=== PATIENT | male | born 1960 | race Hispanic/Latino ===

== ENCOUNTER 2022-06-11 16:25 | Emergency (ER) | payer OTHER, MEDICAID ==
[~2022-06-11] VITALS: Ht 165.1 cm; Wt 74.8 kg
[2022-06-11] MEDS: LACTATED RINGERS 1000ML 1,000 ML IV ONE (16:30)
[2022-06-11] MEDS: ACETAMINOPHEN 325 MG TAB PO ONE (16:30)
[2022-06-11] MEDS: ONDANSETRON 4MG INJ IVP ONE (16:30)
[2022-06-11 17:03] LABS: BASOPHILS % (AUTO) 0.4 % (0.0-5.0); EOSINOPHILS % (AUTO) 0.2 % (0.0-8.0); HEMATOCRIT 48.7 % (42-54); LYMPHOCYTES % (AUTO) 6.4 % (21.0-51.0); MEAN CORPUSCULAR HEMOGLOBIN 29.2 pg (27.0-33.0); MEAN CORPUSCULAR HGB CONC 33.9 g/dL (32.0-36.0); MONOCYTES % (AUTO) 10.3 % (3.0-13.0); NEUTROPHILS % (AUTO) 81.8 % (40.0-77.0); PLATELET COUNT (AUTO) 153 K/uL (130-400); RED BLOOD CELL COUNT(AUTO) 5.66 MIL/uL (4.50-6.20); RED CELL DISTRIBUTION WIDTH 14.5 % (11.0-15.5); WHITE BLOOD COUNT (AUTO) 9.1 K/uL (4.8-10.8)
[2022-06-11 17:17] LABS: CREATININE 1.1 mg/dL (0.5-1.5); POTASSIUM 3.3 mmol/L (3.5-5.1)
[2022-06-11 17:22] LABS: ALBUMIN 3.3 g/dL (3.5-5.0); TOTAL PROTEIN, SERUM 7.3 g/dL (6.0-8.3)
[2022-06-11 17:27] LABS: APPEARANCE,URINE CLEAR (CLEAR); BILIRUBIN,URINE NEGATIVE (NEGATIVE); COLOR,URINE YELLOW (YELLOW); GLUCOSE, URINE (UA) NEGATIVE (NEGATIVE); KETONES,URINE NEGATIVE (NEGATIVE); LEUKOCYTE ESTERASE ,URINE NEGATIVE (NEGATIVE); NITRATE,URINE NEGATIVE (NEGATIVE); OCCULT BLOOD,URINE NEGATIVE (NEGATIVE); PH,URINE 5.5 (5.0-8.0); PROTEIN,URINE NEGATIVE (NEGATIVE); UROBILINOGEN,URINE 0.2 mg/dL (0.2-1.0)
[2022-06-11] MEDS ORDERED: CIPR-278 PO (18:42)
[2022-06-11] MEDS ORDERED: ONDA4TAB10 PO (18:42)
[2022-06-11 18:48] VITALS: BP 148/73
[2022-06-11] MEDS: LEVOFLOXACIN 500 MG TABLET PO SCH (18:48)
== END 2022-06-11 18:54 | disposition home or self-care (01) ==
LOC: EDH 16:25
DX: K52.9 Noninfective gastroenteritis and colitis, unspecified (principal); I12.0 Hypertensive chronic kidney disease with stage 5 chronic kidney disease or end stage renal disease; N18.6 End stage renal disease; Z94.0 Kidney transplant status
CPT/HCPCS: 99284; 74176; 96374; 96361; 80053; 83690; 85025; 87040 ×2; 83605; 81003; 36415; J7120; J2405

== ENCOUNTER 2022-09-22 10:55 | Emergency (ER) | payer MEDICAID, OTHER ==
[~2022-09-22] VITALS: Ht 165.1 cm; Wt 75.3 kg
[~2022-09-22 10:55] MED LIST: CIPR-278 PO; ONDA4TAB10 PO
[2022-09-22] MEDS ORDERED: NA BORATE/BORIC AC/H2O/NACL 120 ML OPHTH IRRIG SOLN OP SCH (11:30)
[2022-09-22] MEDS ORDERED: TETRACAINE HCL 0.5% 15 ML OPHTH SOLN OP SCH (11:30)
[2022-09-22] MEDS ORDERED: TETRACAINE HCL 0.5% 4 ML OPHTH SOLN ONE (11:51)
[2022-09-22] MEDS ORDERED: FLUORESCEIN SODIUM 1 STRIP STRIP ONE (11:57)
[2022-09-22 14:41] VITALS: BP 132/78
== END 2022-09-22 14:43 | disposition home or self-care (01) ==
LOC: EDH 10:55
DX: H54.62 Unqualified visual loss, left eye, normal vision right eye (principal); Z98.890 Other specified postprocedural states
CPT/HCPCS: 70480

== ENCOUNTER 2022-11-23 11:50 | Emergency (ER) | payer OTHER ==
[~2022-11-23] VITALS: Ht 165.1 cm; Wt 71.7 kg
[2022-11-23 14:26] LABS: BASOPHILS % (AUTO) 0.7 % (0.0-5.0); EOSINOPHILS % (AUTO) 0.9 % (0.0-8.0); LYMPHOCYTES % (AUTO) 18.9 % (21.0-51.0); MEAN CORPUSCULAR HEMOGLOBIN 28.6 pg (27.0-33.0); MEAN CORPUSCULAR HGB CONC 32.7 g/dL (32.0-36.0); MEAN CORPUSCULAR VOLUME 87.6 fL (79-99); MONOCYTES % (AUTO) 12.8 % (3.0-13.0); PLATELET COUNT (AUTO) 190 K/uL (130-400); RED BLOOD CELL COUNT(AUTO) 6.39 MIL/uL (4.50-6.20); RED CELL DISTRIBUTION WIDTH 15.2 % (11.0-15.5); WHITE BLOOD COUNT (AUTO) 8.8 K/uL (4.8-10.8)
[2022-11-23 14:34] LABS: POTASSIUM 3.7 mmol/L (3.5-5.1)
[2022-11-23 14:38] LABS: ALBUMIN 4.1 g/dL (3.5-5.0); TOTAL PROTEIN, SERUM 8.4 g/dL (6.0-8.3)
[2022-11-23] MEDS ORDERED: HYDR-3420 PO (14:45)
[2022-11-23] MEDS ORDERED: CLON0.1T PO (14:45)
[2022-11-23 15:01] VITALS: BP 164/84
== END 2022-11-23 15:05 | disposition home or self-care (01) ==
LOC: EDH 11:50
DX: I10 Essential (primary) hypertension (principal); Z76.0 Encounter for issue of repeat prescription; Z79.899 Other long term (current) drug therapy
CPT/HCPCS: 36415; 80053; 85025; 99281

== ENCOUNTER 2022-12-02 02:05 | Emergency (ER) | payer OTHER ==
[~2022-12-02] VITALS: Ht 165.1 cm; Wt 74.8 kg
[~2022-12-02 02:05] MED LIST changes: +CLON0.1T PO; +HYDR-3420 PO
[2022-12-02 02:25] LABS: BASOPHILS % (AUTO) 0.7 % (0.0-5.0); EOSINOPHILS % (AUTO) 0.6 % (0.0-8.0); HEMATOCRIT 53.9 % (42-54); LYMPHOCYTES % (AUTO) 17.6 % (21.0-51.0); MEAN CORPUSCULAR HEMOGLOBIN 28.3 pg (27.0-33.0); MEAN CORPUSCULAR HGB CONC 32.7 g/dL (32.0-36.0); MEAN CORPUSCULAR VOLUME 86.8 fL (79-99); MONOCYTES % (AUTO) 8.2 % (3.0-13.0); NEUTROPHILS % (AUTO) 71.1 % (40.0-77.0); PLATELET COUNT (AUTO) 209 K/uL (130-400); RED BLOOD CELL COUNT(AUTO) 6.21 MIL/uL (4.50-6.20); RED CELL DISTRIBUTION WIDTH 14.1 % (11.0-15.5); WHITE BLOOD COUNT (AUTO) 11.1 K/uL (4.8-10.8)
[2022-12-02] MEDS ORDERED: CLONIDINE HCL 0.1 MG TABLET PO ONE (02:30)
[2022-12-02 02:44] LABS: CREATININE 0.7 mg/dL (0.5-1.5)
[2022-12-02 02:49] LABS: ALBUMIN 3.8 g/dL (3.5-5.0); TOTAL PROTEIN, SERUM 7.7 g/dL (6.0-8.3)
[2022-12-02] MEDS ORDERED: ACETAMINOPHEN 500 MG TABLET PO ONE (03:30)
[2022-12-02 04:17] LABS: AMPHET/METH SCREEN,URINE NEGATIVE (NEGATIVE); BARBITURATE SCREEN, URINE NEGATIVE (NEGATIVE); BENZODIAZEPINES SCREEN,URINE NEGATIVE (NEGATIVE); CANNABINOID SCREEN,URINE NEGATIVE (NEGATIVE); COCAINE SCREEN,URINE NEGATIVE (NEGATIVE); OPIATE SCREEN,URINE NEGATIVE (NEGATIVE); PHENCYCLIDINE SCREEN,URINE NEGATIVE (NEGATIVE)
[2022-12-02] MEDS ORDERED: CLON0.1T PO (05:58)
[2022-12-02] MEDS ORDERED: HYDR-3420 PO (05:58)
[2022-12-02 07:25] VITALS: BP 159/96
== END 2022-12-02 07:25 | disposition home or self-care (01) ==
LOC: EDH 02:05
DX: I10 Essential (primary) hypertension (principal); F41.9 Anxiety disorder, unspecified; Z94.0 Kidney transplant status; Z76.0 Encounter for issue of repeat prescription; Z79.899 Other long term (current) drug therapy
CPT/HCPCS: 36415; 70450; 71045; 80053; 80305; 84484; 85025; 93005

== ENCOUNTER 2022-12-26 10:06 | Emergency (ER) | payer OTHER ==
[~2022-12-26] VITALS: Ht 165.1 cm; Wt 65.8 kg
[2022-12-26 10:36] LABS: BASOPHILS % (AUTO) 0.5 % (0.0-5.0); EOSINOPHILS % (AUTO) 0.8 % (0.0-8.0); HEMATOCRIT 48.7 % (42-54); LYMPHOCYTES % (AUTO) 16.5 % (21.0-51.0); MEAN CORPUSCULAR HEMOGLOBIN 28.5 pg (27.0-33.0); MEAN CORPUSCULAR HGB CONC 32.6 g/dL (32.0-36.0); MEAN CORPUSCULAR VOLUME 87.4 fL (79-99); MONOCYTES % (AUTO) 9.2 % (3.0-13.0); PLATELET COUNT (AUTO) 144 K/uL (130-400); RED BLOOD CELL COUNT(AUTO) 5.57 MIL/uL (4.50-6.20); RED CELL DISTRIBUTION WIDTH 14.6 % (11.0-15.5); WHITE BLOOD COUNT (AUTO) 10.4 K/uL (4.8-10.8)
[2022-12-26 10:46] LABS: CREATININE 1.2 mg/dL (0.5-1.5); POTASSIUM 3.8 mmol/L (3.5-5.1)
[2022-12-26 10:50] LABS: ALBUMIN 3.3 g/dL (3.5-5.0); TOTAL PROTEIN, SERUM 6.9 g/dL (6.0-8.3)
[2022-12-26 15:45] VITALS: BP 178/73
== END 2022-12-26 15:45 | disposition home or self-care (01) ==
LOC: EDH 10:06
DX: H54.62 Unqualified visual loss, left eye, normal vision right eye (principal); I10 Essential (primary) hypertension; Z94.0 Kidney transplant status; Z79.899 Other long term (current) drug therapy
CPT/HCPCS: 36415; 71045; 80053; 84484; 85025; 93005

== ENCOUNTER 2023-07-17 11:00 | Emergency (ER) | payer MEDICARE, OTHER ==
[~2023-07-17] VITALS: Ht 165.1 cm; Wt 70.3 kg
[2023-07-17] MEDS ORDERED: HYDRALAZINE 20MG/ML VIAL IM ONE (11:30)
[2023-07-17 12:38] VITALS: BP 137/78; PULSE 75; RESP 18; O2SAT 99
[2023-07-17 12:47] LABS: POTASSIUM 3.7 mmol/L (3.5-5.1)
[2023-07-17 12:54] LABS: ALBUMIN 3.6 g/dL (3.5-5.0); BILIRUBIN,TOTAL 0.5 mg/dL (0.2-1.0); TOTAL PROTEIN, SERUM 7.1 g/dL (6.0-8.3)
[2023-07-17 12:57] LABS: BASOPHILS # (AUTO) 0.04 K/uL (0.00-0.20); BASOPHILS % (AUTO) 0.5 % (0.0-5.0); EOSINOPHILS # (AUTO) 0.11 K/uL (0.00-0.70); EOSINOPHILS % (AUTO) 1.4 % (0.0-8.0); HEMATOCRIT 49.7 % (42-54); IMMATURE GRANULOCYTE ABSOLUTE 0.07 K/uL (0-1); LYMPHOCYTES # (AUTO) 1.2 K/uL (1.0-4.8); LYMPHOCYTES % (AUTO) 14.8 % (21.0-51.0); MEAN CORPUSCULAR HEMOGLOBIN 28.4 pg (27.0-33.0); MEAN CORPUSCULAR HGB CONC 32.4 g/dL (32.0-36.0); MEAN CORPUSCULAR VOLUME 87.8 fL (79-99); MONOCYTES # (AUTO) 0.9 K/uL (0.1-1.0); MONOCYTES % (AUTO) 11.8 % (3.0-13.0); NEUTROPHILS # (AUTO) 5.6 K/uL (1.8-7.7); NEUTROPHILS % (AUTO) 70.6 % (40.0-77.0); PLATELET COUNT (AUTO) 136 K/uL (130-400); RED BLOOD CELL COUNT(AUTO) 5.66 MIL/uL (4.50-6.20); RED CELL DISTRIBUTION WIDTH 13.8 % (11.0-15.5)
[2023-07-17 13:11] LABS: APPEARANCE,URINE CLEAR (CLEAR); BILIRUBIN,URINE NEGATIVE (NEGATIVE); COLOR,URINE YELLOW (YELLOW); GLUCOSE, URINE (UA) NEGATIVE (NEGATIVE); KETONES,URINE NEGATIVE (NEGATIVE); LEUKOCYTE ESTERASE ,URINE 75 Leu/uL (NEGATIVE); NITRATE,URINE NEGATIVE (NEGATIVE); OCCULT BLOOD,URINE NEGATIVE (NEGATIVE); PH,URINE 5.5 (5.0-8.0); PROTEIN,URINE 30 mg/dL (NEGATIVE); UROBILINOGEN,URINE 0.2 mg/dL (0.2-1.0)
[2023-07-17 13:25] LABS: ADD UA MICROSCOPIC YES
[2023-07-17 13:29] LABS: SQUAMOUS EPITHELIAL CELL,UR RARE /HPF (0-2); WBC,URINE 26-50 /HPF (0-1)
[2023-07-17] MEDS ORDERED: CEPH500C2 PO (13:58)
[2023-07-17] MEDS ORDERED: 0.9%NACL 1000ML 1,000 ML IV ONE (14:00)
[2023-07-17] MEDS ORDERED: CEFTRIAXONE 1G VIAL IVPB ONE (14:00)
== END 2023-07-17 14:39 | disposition home or self-care (01) ==
LOC: EDH 11:00
DX: N39.0 Urinary tract infection, site not specified (principal); I10 Essential (primary) hypertension; E78.00 Pure hypercholesterolemia, unspecified; Z79.899 Other long term (current) drug therapy; Z98.890 Other specified postprocedural states
CPT/HCPCS: 99284; 96365; 80053; 85025; 87088; 81001; 36415; 96372; J7030; J0360; J0696; 96374

== ENCOUNTER 2023-09-07 10:23 | Emergency (ER) | payer MEDICAID, MEDICARE ==
[~2023-09-07] VITALS: Ht 160 cm; Wt 72.6 kg
[~2023-09-07 10:23] MED LIST changes: +CEPH500C2 PO
[2023-09-07 10:29] VITALS: BP 184/76; PULSE 77; RESP 20
[2023-09-07 13:05] LABS: BASOPHILS # (AUTO) 0.06 K/uL (0.00-0.20); BASOPHILS % (AUTO) 0.7 % (0.0-5.0); EOSINOPHILS # (AUTO) 0.11 K/uL (0.00-0.70); EOSINOPHILS % (AUTO) 1.3 % (0.0-8.0); HEMATOCRIT 48.9 % (42-54); LYMPHOCYTES # (AUTO) 1.5 K/uL (1.0-4.8); LYMPHOCYTES % (AUTO) 17.7 % (21.0-51.0); MEAN CORPUSCULAR HEMOGLOBIN 28.6 pg (27.0-33.0); MEAN CORPUSCULAR HGB CONC 32.9 g/dL (32.0-36.0); MONOCYTES # (AUTO) 1.1 K/uL (0.1-1.0); MONOCYTES % (AUTO) 13.7 % (3.0-13.0); NEUTROPHILS # (AUTO) 5.4 K/uL (1.8-7.7); NEUTROPHILS % (AUTO) 65.4 % (40.0-77.0); PLATELET COUNT (AUTO) 132 K/uL (130-400); RED BLOOD CELL COUNT(AUTO) 5.62 MIL/uL (4.50-6.20); RED CELL DISTRIBUTION WIDTH 14.2 % (11.0-15.5); WHITE BLOOD COUNT (AUTO) 8.3 K/uL (4.8-10.8)
[2023-09-07 13:10] LABS: POTASSIUM 3.6 mmol/L (3.5-5.1)
[2023-09-07 13:14] LABS: APPEARANCE,URINE CLEAR (CLEAR); BILIRUBIN,URINE NEGATIVE (NEGATIVE); COLOR,URINE YELLOW (YELLOW); GLUCOSE, URINE (UA) NEGATIVE (NEGATIVE); KETONES,URINE NEGATIVE (NEGATIVE); LEUKOCYTE ESTERASE ,URINE 25 Leu/uL (NEGATIVE); NITRATE,URINE NEGATIVE (NEGATIVE); OCCULT BLOOD,URINE NEGATIVE (NEGATIVE); PH,URINE 5.5 (5.0-8.0); PROTEIN,URINE 20 mg/dL (NEGATIVE); UROBILINOGEN,URINE 0.2 mg/dL (0.2-1.0)
[2023-09-07 13:15] LABS: ADD UA MICROSCOPIC YES
[2023-09-07 13:15] LABS: ALBUMIN 3.4 g/dL (3.5-5.0); BILIRUBIN,TOTAL 0.4 mg/dL (0.2-1.0); TOTAL PROTEIN, SERUM 6.9 g/dL (6.0-8.3)
[2023-09-07 13:32] LABS: B-TYPE NATRIURETIC PEPTIDE 148 pg/mL (0-100)
[2023-09-07 13:37] LABS: BACTERIA,URINE RARE /HPF (None Seen); SQUAMOUS EPITHELIAL CELL,UR RARE /HPF (0-2)
[2023-09-07] MEDS ORDERED: CEPH500B PO (14:47)
[2023-09-07] MEDS ORDERED: ACET-2459 PO (14:47)
== END 2023-09-07 15:05 | disposition home or self-care (01) ==
LOC: EDH 10:23
DX: S16.1XXA Strain of muscle, fascia and tendon at neck level, initial encounter (principal); N39.0 Urinary tract infection, site not specified; K75.81 Nonalcoholic steatohepatitis (NASH); I10 Essential (primary) hypertension; E78.00 Pure hypercholesterolemia, unspecified; Z79.899 Other long term (current) drug therapy; Z98.890 Other specified postprocedural states; X58.XXXA Exposure to other specified factors, initial encounter; Y93.89 Activity, other specified; Y92.89 Other specified places as the place of occurrence of the external cause; Y99.8 Other external cause status
CPT/HCPCS: 36415; 71045; 80053; 81001; 83605; 83690; 83880; 85025; 93005; 93931

== ENCOUNTER 2025-10-04 11:27 | Emergency (ER) | payer MEDICAID ==
[~2025-10-04] VITALS: Ht 162.6 cm; Wt 61.2 kg
--- NOTE | 2025-10-04 11:59 | ERN ---
ED Note History of Present Illness Stated Complaint: RT LEG PAIN Chief Complaint: Lower Extremity Pain/Injury Time Seen by MD: 11:33 Time Seen by Midlevel: 11:33 Dictation: He was most recently seen in the ED 2 days ago for same. He had x-rays of right hip/pelvis and knee which were unremarkable. They administered doses IM Morphine as well as Tylenol #3 x 1. He was discharged to home with prescriptions for . He states he was unable to fill. He states pain is now 10/10. Allergies: Coded Allergies: No Known Drug Allergies (Unverified Allergy, Unknown, 06/11/22) Home Meds Active Scripts Cyclobenzaprine HCl (Cyclobenzaprine HCl) 5 Mg Tablet, 1 TAB PO HSPRN PRN for muscle spasms for 9 Days, #9 TAB 0 Refills Prov:JANIE MEDELLIN PROCESS CONTROL MANAGER 10/04/25 Reported Medications Clonidine HCl (Clonidine HCl) 0.1 Mg Tablet, 0.3 MG PO TID, TAB 09/29/25 Mycophenolate Sodium (Mycophenolic Acid) 180 Mg Tablet.dr, 1 TAB PO TID for 30 Days, #180 TAB 0 Refills 09/29/25 Discontinued Scripts Acetaminophen (8 Hour) 650 Mg Tablet.er, 650 MG PO TID, #30 TAB Prov:MELISSA TRAN V [facility] 09/07/23 Cephalexin Monohydrate (Keflex) 500 Mg Cap, 500 MG PO QID for 7 Days, #28 CAP Prov:MELISSA TRAN V [facility] 09/07/23 Cephalexin (Cephalexin) 500 Mg Capsule, 500 MG PO [id number] for 7 Days, #28 CAP Prov:MONSE VENTURA NP 07/17/23 Hydralazine Hcl (APRESOLINE) 10 Mg Tablet, 10 MG PO BID, #30 TAB 0 Refills Prov:ROMEO NOBLES MD 12/02/22 Clonidine HCl (Clonidine HCl) 0.1 Mg Tablet, 0.1 MG PO BID, #30 TAB 0 Refills Prov:ROMEO NOBLES MD 12/02/22 Hydralazine Hcl (APRESOLINE) 10 Mg Tablet, 10 MG PO BID for 7 Days, #14 TAB Prov:MELISSA TRAN V [facility] 11/23/22 Clonidine HCl (Clonidine HCl) 0.1 Mg Tablet, 0.1 MG PO BID for 7 Days, #14 TAB Prov:MELISSA TRAN V PROCESS CONTROL MANAGER 11/23/22 Ondansetron (Ondansetron Odt) 4 Mg Tab.rapdis, 4 MG PO Q6HPRN PRN for nausea, #16 TAB 0 Refills Prov:VIDYA JORDAN MD 06/11/22 Ciprofloxacin HCl (Cipro) 500 Mg Tablet, 1 TAB PO BID for 5 Days, #10 TAB 0 Refills Prov:VIDYA JORDAN MD 06/11/22 Past Medical History Past Medical History: Hypertension, Liver Disease, Renal Disese Additional Past Medical Hx: FATTY LIVER Surgical History: Other Surgical History Other: RENAL TRANSPLANT Family History: HTN Social History: Negative, Lives with family RN Note Reviewed/Agreed w/PFSH: Yes Review of System Dictation REVIEW OF SYSTEMS: CONSTITUTIONAL: Patient denies fevers, chills, sweats and weight changes. EYES: Patient denies any visual symptoms. EARS, NOSE, AND THROAT: No difficulties with hearing. No symptoms of rhinitis or sore throat. CARDIOVASCULAR: Patient denies chest pains, palpitations, orthopnea and paroxysmal nocturnal dyspnea. RESPIRATORY: No dyspnea on exertion, no wheezing or cough. GI: No nausea, vomiting, diarrhea, constipation, abdominal pain, hematochezia or melena. : No urinary hesitancy or dribbling. No nocturia or urinary frequency. No abnormal urethral discharge. MUSCULOSKELETAL: Reports pain to right hip and right knee. Reports pain with ambulation. NEUROLOGIC: No chronic headaches, no seizures. Patient denies numbness, tingling or weakness. PSYCHIATRIC: Patient denies problems with mood disturbance. No problems with anxiety. ENDOCRINE: No excessive urination or excessive thirst. DERMATOLOGIC: Patient denies any rashes or skin changes. Initial Vital Sign VS Vital Signs Date Time Temp Pulse Resp B/P (MAP) Pulse Ox O2 Delivery O2 Flow Rate FiO2 10/04/25 11:33 98.8 68 18 137/68 98 10/04/25 12:04 Room Air* 0 21 Physical Exam Dictation Vital signs: Reviewed. Constitutional: No acute distress. Non-toxic appearing. Head/Face: Normocephalic, atraumatic. Eyes: Periorbital areas with no swelling, redness, or edema. Lids and lashes are normal. Conjunctival injection is absent. Sclera anicteric. Pupils equal, round, reactive to light. ENT: Pinnas intact and no signs of trauma or erythema. Ear canals clear and no discharge. TMs no erythema. No nasal discharge or bleeding noted. Oropharynx with no exudate, redness, swelling, masses, exudates, or evidence of obstruction. Uvula midline. Mucous membranes moist. Neck: Trachea midline, no masses palpated, and no cervical lymphadenopathy. No swelling. Supple, full range of motion. Chest/Axilla: No tenderness, no crepitus, no paradoxical movement, no retractions. Cardiovascular: Regular rate, regular rhythm, no murmur, no gallops. Symmetric pulses. No peripheral edema. Old AV fistula to the left upper arm. Respiratory: Respirations even and unlabored. Lung sounds clear; no wheezes, rales or rhonchi. Room air SpO2 98% Gastrointestinal: Inspection is normal. No distention is appreciated. Bowel sounds are normal. No mass or organomegaly . There is no tenderness. No rebound. No rigidity. No voluntary or involuntary guarding. No Gil's sign. Neurological: Normal speech, gross motor function intact, gross sensory function intact. No focal weakness/Paresthesia. Musculoskeletal/Extremities: Symmetric pulses. Right lower extremity without swelling, erythema, ecchymosis, or visible bony deformity. Skin is intact. The patient has diffuse tenderness to palpation over the right hip, anterior thigh, and right knee. Pain is elicited with both active and passive range of motion of the right hip and right knee, though range of motion is preserved. There is no calf tenderness, distal neurovascular status is intact with normal sensation, movement, and palpable dorsalis pedis/posterior tibial pulses. No signs of joint instability. Integumentary: Intact. Skin is normal color, warm and dry. Cap refill less than 3 seconds. ED Course ED Course Orders Procedure Category Date Status Time Tramadol Hcl (Ultram) PHA 10/04/25 Complete 12:00 Orphenadrine Citrate PHA 10/04/25 Complete (Norflex) 12:00 Current Medications Medications (Trade) Dose Ordered Sig/Amy Route PRN Reason Start Time Stop Time Status Last Admin Dose Admin Orphenadrine Citrate (Norflex) 60 mg ONCE ONCE IM 10/04/25 12:00 10/04/25 12:01 DC Tramadol HCl (UltRAM) 50 mg ONCE ONCE PO 10/04/25 12:00 10/04/25 12:01 DC Vital Signs Date Time Temp Pulse Resp B/P (MAP) Pulse Ox O2 Delivery O2 Flow Rate FiO2 10/04/25 12:04 98.1 65 20 166/75 99 Room Air* 0 21 10/04/25 11:33 98.8 68 18 137/68 98 Uneventful ED course. Vital signs are stable; afebrile and normotensive with room air SpO2 98-100%. Patient received IM dose Norflex as well as p.o. dose tramadol. Advised patient that additional imaging not indicated at this time; reviewed imaging performed on 10/02. He has good color, warmth, movement, and sensation to the right foot. Capillary refill is brisk. Pedal pulses are p alpable. Medical Decision Making MDM MDM: Differential diagnosis: R Hip strain, R knee strain, noncompliance Rationale: Tests considered and ordered secondary to shared decision making include: Examination, review of radiographs 10/02 Previous outside records reviewed: Old ER visits. Risk of complication and/or morbidity or mortality of patient management: None Medications-Per medication reconciliation Need for hospitalization: Patient does not meet criteria for hospitalization. Need for emergency major/minor surgery: No There are no social concerns with this patient. Prescription drug management: Flexeril Prescriptions will include symptomatic care Patient's prior external medical records from other ER visits were reviewed by me as indicated. Prior testing and results from previous visits were reviewed. Prior tests were taken into account with medical decision making and resource utilization, independent historian/historians were used to obtain complete medical history. I independently interpreted the test that were performed, results were reviewed by me and considered findings on radiology if ordered. Medical management and examination interpretation discussions were had by me with other qualified healthcare professionals as indicated for the patient's care. DX & DISP Disposition: Discharge Departure Impression: Primary Impression: Strain of muscle of right hip Additional Impression: Strain of knee and leg, right Condition: Stable Scripts Cyclobenzaprine HCl (Cyclobenzaprine HCl) 5 Mg Tablet 1 TAB PO HSPRN PRN for muscle spasms for 9 Days, #9 TAB 0 Refills Prov: JANIE MEDELLIN PROCESS CONTROL MANAGER 10/04/25 Additional Instructions: You were evaluated today for your right hip and knee pain. Her examination and review of prior imaging from 11/27 show no fracture, dislocation or acute abnormality. Your symptoms are most consistent with a musculoskeletal drains/sprain or soft tissue pain, which can take several days to improve. You were given Norflex IM for muscle spasms as well as tramadol for pain relief. No additional imaging was needed at this time based on your stable examined recent x-rays. Continue taking your previously prescribed medications as directed should you may use heat or warm compresses to the hip/knee for 15-20 minutes at a time to help relax the muscles. Avoid strenuous activity or lifting until symptoms improve. Gentle stretching and slow walking as tolerated may help reduce stiffness. Avoid ibuprofen or naproxen. Use prescribed medications as directed and to not exceed the recommended doses. Follow up with your primary care physician in the next 1-2 days, as previously instructed, for ongoing management of your chronic pain and kidney care. They may arrange outpatient physical therapy, medication adjustments, or specialist referral if needed. Return to the ER if you develop fever, redness, warmth, or swelling of the joint. Inability to bear weight, weakness, numbness, or loss of bowel/bladder control. Severe or worsening pain. Signs of dehydration, vomiting, or concerns related to your kidney transplant. Or any new or concerning symptoms. Referrals: SELF,REFERRAL (PCP) Time of Disposition: 12:46 ATTESTATION BY PHYSICIAN I PERFORMED THE SUBSTANTIVE PORTION OF THE VISIT. I HAVE REVIEWED AND PERSONALLY MADE AND APPROVED THE MANAGEMENT PLAN THAT IS DOCUMENTED IN THE NOTE BY MYSELF FOR THE A PP. JANIE MEDELLIN Oct 04, 2025 11:59 SHIELA BURTON MD Oct 04, 2025 18:08
[2025-10-04] MEDS ORDERED: ORPHENADRINE 60MG/2ML IM ONE (12:00)
[2025-10-04 12:04] VITALS: BP 166/75; PULSE 65; RESP 20; TEMP 98.1; O2SAT 99
== END 2025-10-04 13:08 | disposition home or self-care (01) ==
LOC: EDH 11:27
DX: S76.011A Strain of muscle, fascia and tendon of right hip, initial encounter (principal); S86.911A Strain of unspecified muscle(s) and tendon(s) at lower leg level, right leg, initial encounter; I10 Essential (primary) hypertension; Z79.899 Other long term (current) drug therapy; Z79.624 Long term (current) use of inhibitors of nucleotide synthesis; Z94.0 Kidney transplant status; X58.XXXA Exposure to other specified factors, initial encounter; Y93.89 Activity, other specified; Y92.89 Other specified places as the place of occurrence of the external cause; Y99.8 Other external cause status
CPT/HCPCS: 96372; 99283; J2360

== ENCOUNTER 2025-10-08 10:40 | Emergency (ER) | payer MEDICAID ==
[~2025-10-08] VITALS: Ht 165.1 cm; Wt 60.8 kg
--- NOTE | 2025-10-08 10:49 | ERN ---
ED Note History of Present Illness Stated Complaint: RT HIP PAIN Chief Complaint: Hip Pain/Injury Time Seen by MD: 10:42 Dictation: PATIENT IS A 65-YEAR-OLD MALE COMING IN TODAY WITH HIS 3RD VISIT FOR RIGHT HIP PAIN NON TRAUMA HE HAS HAD FOR 3-4 WEEKS. HE DENIES ANY FALLS NO PRIOR SURGERIES. HE HAS ALREADY BEEN SEEN TWICE AND WAS TREATED FOR PAIN AND PAIN WAS RESOLVED, HE STATES HE NEVER FOLLOWED UP WITH HIS PRIMARY CARE DOCTOR OR THE ORTHOPEDIC REFERRAL THAT WAS GIVEN TO HIM. ON-CALL Allergies: Coded Allergies: No Known Drug Allergies (Unverified Allergy, Unknown, 06/11/22) Home Meds Active Scripts Cyclobenzaprine HCl (Cyclobenzaprine HCl) 5 Mg Tablet, 1 TAB PO HSPRN PRN for muscle spasms for 9 Days, #9 TAB 0 Refills Prov:BURTONJennaJANIE M HOP STRAINER 10/04/25 Reported Medications Clonidine HCl (Clonidine HCl) 0.1 Mg Tablet, 0.3 MG PO TID, TAB 09/29/25 Mycophenolate Sodium (Mycophenolic Acid) 180 Mg Tablet.dr, 1 TAB PO TID for 30 Days, #180 TAB 0 Refills 09/29/25 Past Medical History Past Medical History: Hypertension, Liver Disease, Renal Disese Additional Past Medical Hx: FATTY LIVER Surgical History: Other Surgical History Other: RENAL TRANSPLANT Family History: HTN Social History: Negative, Lives with family RN Note Reviewed/Agreed w/PFSH: Yes Review of System Dictation CONSTITUTIONAL: NEGATIVE EXCEPT FOR HPI HEAD/FACE: NEGATIVE EXCEPT FOR HPI EENT: NEGATIVE EXCEPT FOR HPI RESPIRATORY: NEGATIVE EXCEPT FOR HPI GASTROINTESTINAL/ABDOMINAL: NEGATIVE EXCEPT FOR HPI GENITOURINARY: NEGATIVE EXCEPT FOR HPI MUSCULOSKELETAL: NEGATIVE EXCEPT FOR HPI RIGHT HIP PAIN INTEGUMENTARY: NEGATIVE EXCEPT FOR HPI NEUROLOGICAL/PSYCH: NEGATIVE EXCEPT FOR HPI HEMATOLOGIC/LYMPHATIC: NEGATIVE EXCEPT FOR HPI ALL SYSTEMS NEGATIVE, EXCEPT NOTED ABOVE. 13 POINT REVIEW OF SYSTEMS ASSESSED AND ALL NEGATIVE EXCEPT FOR ABOVE. Initial Vital Sign VS Vital Signs Date Time Temp Pulse Resp B/P (MAP) Pulse Ox O2 Delivery O2 Flow Rate FiO2 10/08/25 10:42 97.5 76 18 201/98 100 Room Air 0 10/08/25 11:05 21 Physical Exam Dictation VITAL SIGNS REVIEWED GENERAL APPEARANCE: ALERT, ORIENTED X 3, MODERATE ACUTE DISTRESS, WELL DEVELOPED, NOURISHED. HEAD AND FACE: NON-TRAUMATIC. EYES: PERRL, PINK CONJUNCTIVAS, EYELID NO TRAUMA, ANTERIOR CHAMBER WITH ARCUS SENILIS. EARS: PINNAS INTACT AND NO SIGNS OF TRAUMA OR ERYTHEMA EAR CANALS CLEAR AND NO DISCHARGE TM NO ERYTHEMA NOSE: NO DISCHARGE, NO BLEEDING. OROPHARYNX: MOUTH NORMAL, TONGUE PINK, PHARYNX CLEAR,NO ERYTHEMA, TONSILS NO EXUDATES, NO ABSCESSES NOTED, MUCOUS MEMBRANE MOIST NECK: SUPPLE, NON-TENDER, NO THYROMEGALY, NO MASSES, NO JVD, NO BRUITS BREAST:DEFERRED CHEST:NO TENDERNESS, NO CREPITUS, NO PARADOXICAL MOVEMENT, NO RETRACTIONS LUNGS:CLEAR, WELL-VENTILATED, SYMMETRIC, NO RALES, NO WHEEZING, NO RHONCHI, NO STRIDOR, GOOD BREATH SOUNDS BILATERALLY HEART: REGULAR RATE, REGULAR RHYTHM, NO MURMUR, NO GALLOPS VASCULAR: NO PERIPHERAL EDEMA, ABDOMEN: SOFT, POSITIVE BOWEL SOUNDS, NONDISTENDED, NO GUARDING, NONTENDER, NO REBOUND, NO MASSES NO HEPATOMEGALY, NO SPLENOMEGALY, NO KNOX'S SIGN, NO HERNIAS. RECTAL: DEFERRED GENITAL: DEFERRED NEUROLOGICAL: NORMAL SPEECH, MOTOR FUNCTION INTACT, SENSORY FUNCTION INTACT MUSCULOSKELETAL: NECK NONTENDER, FULL RANGE OF MOTION, BACK NONTENDER, FULL RANGE OF MOTION, EXTREMITIES: RIGHT ANTEROLATERAL HIP PAIN WITH PALPATION. NO SHORTENING OR ROTATION OF RIGHT LEG. SKIN: COLOR PINK, DRY, NO TURGOR, NO RASH, NO LACERATIONS, NO ABRASIONS, NO CONTUSIONS. LYMPHATIC: DEFERRED Results (Laboratory/Radiology) Laboratory/Radiology Signed PATIENT: FELIBERTO DIAZ MR#: [id number] : 1960 SEX: M AGE: 65 LOCATION: [facility] ORDER 1048 STATUS: REG ER REPORT#: [id number] SERVICE 1046 REASON: CHRONIC RIGHT HIP PAIN. X-RAYS NEGATIVE ORDERING PHYSICIAN: ALLAN HUERTA HOP STRAINER PROCEDURE: LOW EXT WO - CT LOW EXT W/O CONTRAST EXAM: CT right Hip, without IV contrast. CLINICAL HISTORY: Chronic right hip pain. X-rays negative. TECHNIQUE: Axial images were acquired through the right hip without IV contrast. Reformatted images were reviewed. COMPARISON: CT Abdomen/Pelvis without contrast dated 09/28/25 11:50 EST. FINDINGS: BONES: No acute fracture or aggressive appearing osseous lesion is identified. A hypodense lesion with surrounding dense sclerosis is present in the right intertrochanteric femur, most consistent with a benign chronic focus, possibly related to prior instrumentation or remote insult. JOINTS: Mild osteoarthritic changes of the right hip with minimal joint space narrowing and small marginal osteophytes. No dislocation is present. SOFT TISSUES: Periarticular soft tissues are unremarkable. No sizable fluid collection or soft tissue gas is identified. IMPRESSION: * Mild osteoarthritis of the right hip. * Sclerotic-rimmed hypodense lesion in the right intertrochanteric femur, likely benign and possibly related to prior instrumentation or remote injury, without CT evidence of acute osseous abnormality. /[facility] Reviewed?: Yes ED Course ED Course Orders Procedure Category Date Status Time Ct Low Ext W/O CT 10/08/25 Resulted Contrast 10:46 Morphine 4mg Syg PHA 10/08/25 Complete (Morphine 4mg Syg) 11:00 Ondansetron Odt 4mg PHA 10/08/25 Complete Tab (Zofran 4mg Odt) 11:00 Morphine 2mg Syg PHA 10/08/25 Complete (Morphine 2mg Syg) 13:30 Current Medications Medications (Trade) Dose Ordered Sig/Amy Route PRN Reason Start Time Stop Time Status Last Admin Dose Admin Morphine Sulfate (morPHINE 2MG SYG) 2 mg ONCE ONCE IM 10/08/25 13:30 10/08/25 13:31 DC Morphine Sulfate (morPHINE 4MG SYG) 4 mg ONCE ONCE IM 10/08/25 11:00 10/08/25 11:01 DC 10/08/25 11:03 Ondansetron HCl (zoFRAN 4MG ODT) 4 mg ONCE ONCE SL 10/08/25 11:00 10/08/25 11:01 DC 10/08/25 11:04 Vital Signs Date Time Temp Pulse Resp B/P (MAP) Pulse Ox O2 Delivery O2 Flow Rate FiO2 10/08/25 12:16 98.1 72 17 201/109 98 Room Air* 0 21 10/08/25 11:05 97.9 70 16 152/90 100 Room Air* 0 21 10/08/25 10:42 97.5 76 18 201/98 100 Room Air 0 1305/SPOKE WITH ZAKIA IN RADIOLOGY REGARDING CT REPORT. HE SAID IT WAS BEING TRANSMITTED AND THAT HE WOULD WORK TO HAVE IT EXPEDITED FOR READ. 1325/SPOKE WITH CHRISTOPH AT [facility] AND ASKED TO POLICE HAVE THE CT REPORT [id number]/ PAIN IS MARKEDLY RELIEVED AFTER MORPHINE. HE IS AWARE THAT THIS IS OSTEO ARTHRITIS ONLY HE NEEDS TO SEE HIS PRIMARY CARE DOCTOR FOR MANAGEMENT AND REFERRAL Medical Decision Making MDM MEDICAL DISCHARGE MAKING BASED ON TREATMENT FOR CHRONIC RIGHT HIP PAIN PERFORMED A CAT SCAN DUE TO MULTIPLE VISITS WITH THE EMERGENCY ROOM. PATIENT IS AWARE THAT CAT SCAN SHOWS OSTEOARTHRITIS ONLY HE WILL BE SENT HOME TO SEE HIS PRIMARY CARE DOCTOR, IN THE NEXT 1-2 DAYS. DX & DISP Disposition: Discharge Departure Impression: Primary Impression: Osteoarthritis of right hip Additional Impression: Chronic hip pain Condition: Stable Scripts Prednisone (Prednisone) 20 Mg Tablet 1 TAB PO AD for 6 Days, #14 TAB 0 Refills TAKE 1 TAB BY MOUTH THREE TIMES PER DAY X3 DAYS, THEN TAKE 1 TAB BY MOUTH TWICE A DAY X2 DAYS, THEN TAKE 1 TAB BY MOUTH ONCE A DAY X1 DAY. Prov: ALLAN HUERTA 10/08/25 Additional Instructions: FOLLOW-UP WITH PRIMARY CARE PROVIDER IN 1 TO 2 DAYS. TAKE MEDICATIONS DIRECTED HERE IN THE EMERGENCY ROOM. OKAY TO CONTINUE HOME MEDICATIONS UNLESS OTHERWISE DISCUSSED DURING YOUR VISIT IN THE EMERGENCY ROOM TODAY. RETURN TO YOUR NEAREST EMERGENCY ROOM IF SYMPTOMS WORSEN OR IF THERE IS NO IMPROVEMENT. CALL 911 IF YOU NEED IMMEDIATE ASSISTANCE. TAKE TYLENOL OR MOTRIN [id number] NEEDED AND IF NO CONTRAINDICATIONS ARE PRESENT. INCREASE ORAL HYDRATION. A WOUND CULTURE OR URINE CULTURE WAS ORDERED HERE IN THE EMERGENCY ROOM DEPARTMENT PLEASE FOLLOW-UP WITH PRIMARY CARE PROVIDER AND ADVISE THEM TO GET REPEAT PORTS FROM OUR FACILITY. IF YOU HAD ANY BORIS WRAP/SPLINTS THAT WERE APPLIED HERE, PLEASE DO NOT REMOVE THEM UNTIL YOU SEE YOUR PRIMARY CARE OR SPECIALTY. TAKE PREDNISONE DIRECTED UNTIL GONE. WARM COMPRESSES TO HIP THREE TO 4 TIMES A DAY. SEE YOUR PRIMARY CARE DOCTOR IN THE NEXT ONE TWO DAYS FOR MANAGEMENT OF YOUR CHRONIC ARTHRITIS IN YOUR HIP Referrals: SELF,REFERRAL (PCP) Time of Disposition: 13:44 I have reviewed the case, and I agree with, Diagnosis and Plan ALLAN HUERTA Oct 08, 2025 10:49
--- NOTE | 2025-10-08 12:25 | NUR ---
SPOKE TO ALLAN HUERTA NP, FOR OKAY TO GIVE PATIENTS CLONIDINE HOME MEDICATION FOR ELEVATED BLOOD PRESSURE, WHICH HE SAID WAS OKAY TO GIVE, I ADMINISTERED PATIENTS CLONIDINE HOME MEDICATIONS AT BEDSIDE, PATIENT RESTING IN BED, CALL LIGHT IN REACH
--- NOTE | 2025-10-08 13:39 | HMCIMG ---
EXAM: CT right Hip, without IV contrast. CLINICAL HISTORY: Chronic right hip pain. X-rays negative. TECHNIQUE: Axial images were acquired through the right hip without IV contrast. Reformatted images were reviewed. COMPARISON: CT Abdomen/Pelvis without contrast dated 09/28/25 11:50 EST. FINDINGS: BONES: No acute fracture or aggressive appearing osseous lesion is identified. A hypodense lesion with surrounding dense sclerosis is present in the right intertrochanteric femur, most consistent with a benign chronic focus, possibly related to prior instrumentation or remote insult. JOINTS: Mild osteoarthritic changes of the right hip with minimal joint space narrowing and small marginal osteophytes. No dislocation is present. SOFT TISSUES: Periarticular soft tissues are unremarkable. No sizable fluid collection or soft tissue gas is identified. IMPRESSION: * Mild osteoarthritis of the right hip. * Sclerotic-rimmed hypodense lesion in the right intertrochanteric femur, likely benign and possibly related to prior instrumentation or remote injury, without CT evidence of acute osseous abnormality. /[place]
[2025-10-08 14:14] VITALS: BP 145/64; PULSE 69; RESP 17; TEMP 98.1; O2SAT 99
== END 2025-10-08 14:16 | disposition home or self-care (01) ==
LOC: EDH 10:40
DX: M16.11 Unilateral primary osteoarthritis, right hip (principal); G89.29 Other chronic pain; M25.551 Pain in right hip; I10 Essential (primary) hypertension; Z79.624 Long term (current) use of inhibitors of nucleotide synthesis; Z79.899 Other long term (current) drug therapy; Z82.49 Family history of ischemic heart disease and other diseases of the circulatory system; Z94.0 Kidney transplant status
CPT/HCPCS: 99285; 73700; 96372 ×2; J2270 ×2